=== PATIENT | male | born 1995 | race Caucasian/White ===

== ENCOUNTER 2018-03-26 12:45 | Inpatient (IN) | payer OTHER ==
[2018-03-26 13:12] VITALS: BMI 28.3
--- NOTE | 2018-03-26 13:24 | HP ---
COWS - Scale Resting Pulse: 1= [place] 81-100 Sweatin= Chills/Flushing Restless Observation: 1= Difficult to Sit Still Pupil Size: 0= Normal to Room Light Bone or Joint Aches: 1= Mild Discomfort Runny Nose/ Eye Tearin= Nasal Congestion GI Upset > 30mins: 1= Stomach Cramp Tremor Observation: 1= Tremor [place], Not Seen Yawning Observation: 1= 1-2x During Session Anxiety or Irritability: 1=Feels Anxious/Irritable Goose Flesh Skin: 0=Smooth Skin COWS Score: 9 CIWA Score - CIWA Score Nausea/Vomitin Muscle Tremors: 3 Anxiety: 4-Mod. Anxious/Guarded Agitation: 1-Slight > Activity Paroxysmal Sweats: 1-Minimal Palms Moist Orientation: 0-Oriented Tacttile Disturbances: 1-Very Mild Itch/Numbness Auditory Disturbances: 3-Moderate Harsh/Frighten Visual Disturbances: 0-None Headache: 2-Mild CIWA-Ar Total Score: 17 Admission ROS BHS - HPI Chief Complaint: I was doing good but I relapsed when I came back to [place], I need help to get it back together Allergies/Adverse Reactions: Allergies Allergy/AdvReac Type Severity Reaction Status Date / Time mercury Allergy Intermediate Swelling Uncoded 03/26/18 13:03 seafood Allergy Intermediate Swelling Uncoded 03/26/18 13:03 History of Present Illness: 22 yo gentleman here for detox from alcohol and opiates , sometimes uses benzodiazepines. Denies seizures, did have an overdose in the past and history of detox in the past elsewhere. Exam Limitations: Clinical Condition - Ebola screening Have you traveled outside of the country in the last 21 days: No (N) Have you had contact with anyone from an Ebola affected area: No Have you been sick,other than usual withdrawal symptoms: No Do you have a fever: No - Review of Systems Constitutional: Diaphoresis, Loss of Appetite, Malaise, Night Sweats, Changes in sleep, Weakness EENT: reports: Nose Congestion Respiratory: reports: No Symptoms reported Cardiac: reports: No Symptoms Reported GI: reports: Diarrhea, Nausea, Poor Appetite, Abdominal cramping : reports: Frequency Musculoskeletal: reports: Back Pain, Joint Pain, Muscle Pain Integumentary: reports: No Symptoms Reported Neuro: reports: Headache, Tremors Endocrine: reports: No Symptoms Reported Hematology: reports: No Symptoms Reported Psychiatric: reports: Judgement Intact, Mood/Affect Appropiate, Anxious Other Systems: Reviewed and Negative Patient History - Patient Medical History Hx Asthma: No Hx Chronic Obstructive Pulmonary Disease (COPD): No Hx Cancer: No Hx Cardiac Disorders: No Hx Hypertension: No Hx Hypercholesterolemia: No Hx Pacemaker: No HX Cerebrovascular Accident: No Hx Seizures: No Hx Diabetes: No Hx Gastrointestinal Disorders: No Hx Liver Disease: No Hx Genitourinary Disorders: No Hx Sexually Transmitted Disorders: No Hx Renal Disease (ESRD): No Hx Thyroid Disease: No Hx Human Immunodeficiency Virus (HIV): No Hx Hepatitis C: No Hx Depression: No Hx Suicide Attempt: No Hx Bipolar Disorder: No Hx Schizophrenia: No - Patient Surgical History Past Surgical History: No - PPD History Previous Implant?: Yes Documented Results: Negative w/o proof Implanted On Prior [facility] Admission?: No PPD to be Administered?: Yes - Reproductive History Patient is a Female of Child Bearing Age (11 -55 yrs old): No (male) - Smoking Cessation Smoking history: Current every day smoker Have you smoked in the past 12 months: Yes Aproximately how many cigarettes per day: 20 Initiated information on smoking cessation: Yes 'Breaking Loose' booklet given: 03/26/18 - Substance & Tx. History Hx Alcohol Use: Yes Hx Substance Use: Yes Substance Use Type: Alcohol, Opiates Hx Substance Use Treatment: Yes - Substances Abused Heroin Route: Smoking Frequency: Daily Amount used: 30 bags Age of first use: 17 Date of Last Use: 03/25/18 Alcohol Route: Oral Frequency: Daily Amount used: vodka- 2pts Age of first use: 12 Date of Last Use: 03/25/18 Alprazolam (Xanax) Route: Oral Frequency: 3-6 times per week Amount used: 4mg daily Age of first use: 13 Date of Last Use: 03/22/18 (when I can get it) suboxone Route: Oral Frequency: 1-2 times per week Amount used: 8 mg sl Age of first use: 21 Date of Last Use: 03/23/18 (non prescribed) marijuana Route: Smoking Frequency: Daily Amount used: 2 joints Age of first use: 11 Date of Last Use: 03/25/18 Family Disease History - Family Disease History Family Disease History: Other: Father ( living, healthy), Mother (living, healthy, etoh), Brother (one -healthy), Sister (one - healthy) Admission Physical Exam [facility] - Vital Signs Vital Signs: Vital Signs - 24 hr 03/26/18 13:03 Temperature 97.7 F Pulse Rate 75 Respiratory 18 Rate Blood Pressure 133/94 - Physical General Appearance: Yes: Nourished, Appropriately Dressed, Mild Distress, Tremorous, Anxious HEENTM: Yes: EOMI, Hearing grossly Normal, Normocephalic, Normal Voice, Pharynx Normal, Nasal Congestion Respiratory: Yes: Normal Breath Sounds, No Respiratory Distress Neck: Yes: No masses,lesions,Nodules Breast: Yes: Breast Exam Deferred Cardiology: Yes: Regular Rhythm, Regular Rate Abdominal: Yes: Non Tender, Flat Genitourinary: Yes: Frequency Back: Yes: Normal Inspection Musculoskeletal: Yes: full range of Motion, Gait Steady, Back pain, Muscle Pain Extremities: Yes: Normal Inspection, Normal Range of Motion, Non-Tender, Tremors Neurological: Yes: Fully Oriented, Alert, Motor Strength 5/5, Normal Mood/Affect , Normal Response Integumentary: Yes: Normal Color, Warm Lymphatic: Yes: Within Normal Limits - Diagnostic (1) Opioid dependence with withdrawal Current Visit: Yes Status: Acute (2) Alcohol dependence with uncomplicated withdrawal Current Visit: Yes Status: Acute (3) Nicotine dependence Current Visit: Yes Status: Chronic Qualifiers: Nicotine product type: cigarettes Substance use status: uncomplicated Qualified Code(s): F17.210 - Nicotine dependence, cigarettes, uncomplicated (4) Cannabis dependence Current Visit: Yes Status: Chronic (5) Moderate alprazolam dependence Current Visit: Yes Status: Chronic Cleared for Admission [facility] - Detox or Rehab [facility] Level of Care: Medically Managed Detox Regimen/Protocol: Methadone/Librium [facility] Breath Alcohol Content Breath Alcohol Content: 0 Urine Drug Screen - Results Drug Screen Negative: No Urine Drug Screen Results: THC-Marijuana, OPI-Opiates, OXY-Oxycodone, BUP- Suboxone
[2018-03-26] MEDS ORDERED: chlordiazePOXIDE HCL 25 MG CAPSULE PO PRN (13:32)
[2018-03-26] MEDS ORDERED: MAG HYDROX/AL HYDROX/SIMETH 30 ML UNIT-DOSE CUP PO PRN (13:32)
[2018-03-26] MEDS ORDERED: LOPERAMIDE HCL 2 MG CAPSULE PO PRN (13:32)
[2018-03-26] MEDS ORDERED: MAGNESIUM HYDROX 2400MG/30ML ORAL SUSPENSION 30 ML CUP PO PRN (13:32)
[2018-03-26] MEDS ORDERED: MAGNESIUM CITRATE 300 ML BOTTLE PO PRN (13:32)
[2018-03-26] MEDS ORDERED: MENTHOL/PHENOL 1 EACH UD MM PRN (13:32)
[2018-03-26] MEDS ORDERED: P-EPHED 60MG/TRIPROLIDI 2.5MG TABLET PO PRN (13:32)
[2018-03-26] MEDS ORDERED: hydrOXYzine PAMOATE 50 MG CAPSULE (FP) PO PRN (13:32)
[2018-03-26] MEDS ORDERED: guaiFENesin/D-METHORPHAN HB 10 ML UNIT-DOSE CUPS PO PRN (13:32)
[2018-03-26] MEDS ORDERED: NICOTINE POLACRILEX 4 MG GUM BUC PRN (13:32)
[2018-03-26] MEDS ORDERED: METHADONE HCL 10 MG TABLET (FOR DETOX USE ONLY) PO ONE ×2 (14:15→23:00)
[2018-03-26] MEDS ORDERED: chlordiazePOXIDE HCL 25 MG CAPSULE PO ONE (14:15)
[2018-03-26] MEDS: NICOTINE 21 MG/24 HOURS TOPICAL PATCH TD SCH (14:33)
--- NOTE | 2018-03-26 15:40 | EKG ---
Test Reason : Blood Pressure : / mmHG Vent. Rate : 068 BPM Atrial Rate : 068 BPM P-R Int : 150 ms QRS Dur : 092 ms QT Int : 388 ms P-R-T Axes : 060 083 034 degrees QTc Int : 412 ms NORMAL SINUS RHYTHM WITH SINUS ARRHYTHMIA NORMAL ECG NO PREVIOUS ECGS AVAILABLE Confirmed by MD Humphrey, Alvin ([id number]) on 03/26/2018 3:40:38 PM Referred By: Confirmed By:Alvin Yin MD
[2018-03-26] MEDS: ACETAMINOPHEN 325 MG TABLET (FP) PO PRN (17:41)
[2018-03-26] MEDS: chlordiazePOXIDE HCL 25 MG CAPSULE PO SCH ×2 (17:41→22:20)
[2018-03-26] MEDS: THIAMINE HCL 100 MG TABLET (FP) PO SCH (22:20)
[2018-03-26] MEDS: MELATONIN 5 MG TABLETS PO PRN (22:20)
[2018-03-26 23:23] LABS: URINE APPEARANCE CLEAR; URINE BILIRUBIN NEGATIVE (<2.0 mg/dL); URINE COLOR LTYELLOW; URINE GLUCOSE (UA) NEGATIVE (NEGATIVE); URINE KETONE NEGATIVE (NEGATIVE); URINE LEUK ESTERASE NEGATIVE (NEGATIVE); URINE NITRITE NEGATIVE (NEGATIVE); URINE PROTEIN NEGATIVE (NEGATIVE); URINE UROBILINOGEN NEGATIVE mg/dL (0.2-1.0)
[2018-03-27] MEDS: chlordiazePOXIDE HCL 25 MG CAPSULE PO SCH ×4 (05:37→22:12)
--- NOTE | 2018-03-27 09:46 | CONSULT ---
[facility] Psychiatric Consult - Data Date of interview: 03/27/18 Admission source: Do It In Person Identifying data: Mr George is a 22 years old single male, employed in [employer], domiciled seeking detox treatment for alcohol opioid, benzodiazepin and cannabis Substance Abuse History: Reports history of alcohol, heroin, suboxone, xanax and marijuana use. Refer to addiction counselor's summary for further information Medical History: Unremarkable. Smokes cigarettes 1 ppd Psychiatric History: Denies history of previous psychiatric treatment Physical/Sexual Abuse/Trauma History: Denies history of emotional, physical or sexual abuse as well as DV relationship. No service Additional Comment: Reports history of multiple previous misdemeanor arrests. No probation currently Mental Status Exam - Mental Status Exam Alert and Oriented to: Time, Place, Person Cognitive Function: Fair Patient Appearance: Well Groomed Mood: Anxious Affect: Appropriate Patient Behavior: Cooperative Speech Pattern: Clear Voice Loudness: Normal Thought Process: Intact, Goal Oriented Hallucinations: Denies Suicidal Ideation: Denies Homicidal Ideation: Denies Insight/Judgement: Fair Sleep: Poorly Appetite: Fair Muscle strength/Tone: Normal Gait/Station: Normal Psychiatric Findings - Problem List ([place] 1, 2,3) (1) Substance-induced anxiety disorder Current Visit: Yes Status: Acute (2) Substance-induced sleep disorder Current Visit: Yes Status: Acute (3) Alcohol dependence with uncomplicated withdrawal Current Visit: Yes Status: Acute (4) Opioid dependence Current Visit: Yes Status: Acute (5) Sedative hypnotic or anxiolytic dependence Current Visit: Yes Status: Acute (6) Cannabis dependence Current Visit: Yes Status: Acute (7) Nicotine dependence Current Visit: Yes Status: Chronic - Initial Treatment Plan Initial Treatment Plan: 1) Start Trazadone 100 mg po HS. 2) Continue inpatient detoxification
[2018-03-27] MEDS ORDERED: METHADONE HCL 10 MG TABLET (FOR DETOX USE ONLY) PO SCH (10:00)
[2018-03-27] MEDS: NICOTINE 21 MG/24 HOURS TOPICAL PATCH TD SCH (10:06)
[2018-03-27] MEDS: PRENATAL VITAMINS W/ FOLIC ACID TABLET (FP) PO SCH (10:07)
[2018-03-27 10:15] LABS: HEMATOCRIT 43.6 % (35.4-49); HEMOGLOBIN 14.5 GM/dL (11.7-16.9); MCH 27.9 pg (25.7-33.7); MCHC 33.3 g/dl (32.0-35.9); MEAN CELL VOLUME 83.8 fl (80-96); MEAN PLT VOLUME 9.2 fl (7.5-11.1); PLATELET COUNT 178 K/MM3 (134-434); RDW 13.1 % (11.9-15.9); WHITE BLOOD COUNT 4.7 K/mm3 (4.0-10.0)
[2018-03-27 10:32] LABS: ALBUMIN 4.1 g/dl (3.4-5.0); ALK PHOS 78 U/L (45-117); ANION GAP 8 MMOL/L (8-16); BILIRUBIN,TOTAL 0.3 mg/dL (0.2-1); BLOOD UREA NITROGEN 12 mg/dL (7-18); CALCIUM 9.5 mg/dL (8.5-10.1); CHLORIDE 106 mmol/L (98-107); CO2 29 mmol/L (21-32); CREATININE 0.7 mg/dL (0.55-1.3); GLUCOSE,RANDOM 93 mg/dL (74-106); POTASSIUM 4.5 mmol/L (3.5-5.1); SGOT/AST 11 U/L (15-37); SGPT/ALT 23 U/L (13-61); SODIUM 143 mmol/L (136-145); TOT PROT 6.7 g/dl (6.4-8.2)
--- NOTE | 2018-03-27 16:36 | PN ---
[facility] CIWA - CIWA Score Nausea/Vomitin-Mild Nausea/No Vomiting Muscle Tremors: 4-Moderate,w/Arms Extend Anxiety: 3 Agitation: 3 Paroxysmal Sweats: 1-Minimal Palms Moist Orientation: 0-Oriented Tacttile Disturbances: 0-None Auditory Disturbances: 0-None Visual Disturbances: 0-None Headache: 0-None Present CIWA-Ar Total Score: 12 BHS COWS - Scale Resting Pulse: 0= [place] 80 or Below Sweatin= Chills/Flushing Restless Observation: 1= Difficult to Sit Still Pupil Size: 0= Normal to Room Light Bone or Joint Aches: 2= Severe Diffuse Aches Runny Nose/ Eye Tearin= Nasal Congestion GI Upset > 30mins: 2= Nausea/Diarrhea Tremor Observation of Outstretched Hands: 1= Tremor [place], Not Seen Yawning Observation: 2= >3x During Session Anxiety or Irritability: 2=Irritable/Anxious Goose Flesh Skin: 0=Smooth Skin COWS Score: 12 [facility] Progress Note (SOAP) Subjective: tremor sweat body aches joints pain discuss consequence of leaving 03/30/18 Objective: 03/27/18 16:41 Vital Signs Temperature 97.3 F L 03/27/18 15:09 Pulse Rate 71 03/27/18 15:09 Respiratory Rate 18 03/27/18 15:09 Blood Pressure 127/57 L 03/27/18 15:09 O2 Sat by Pulse Oximetry (%) Laboratory Last Values WBC 4.7 K/mm3 (4.0-10.0) 03/27/18 07:30 RBC 5.20 M/mm3 (4.00-5.60) 03/27/18 07:30 Hgb 14.5 GM/dL (11.7-16.9) 03/27/18 07:30 Hct 43.6 % (35.4-49) 03/27/18 07:30 MCV 83.8 fl (80-96) 03/27/18 07:30 MCH 27.9 pg (25.7-33.7) 03/27/18 07:30 MCHC 33.3 g/dl (32.0-35.9) 03/27/18 07:30 RDW 13.1 % (11.9-15.9) 03/27/18 07:30 Plt Count 178 K/MM3 (134-434) 03/27/18 07:30 MPV 9.2 fl (7.5-11.1) 03/27/18 07:30 Sodium 143 mmol/L (136-145) 03/27/18 07:30 Potassium 4.5 mmol/L (3.5-5.1) 03/27/18 07:30 Chloride 106 mmol/L (98-107) 03/27/18 07:30 Carbon Dioxide 29 mmol/L (21-32) 03/27/18 07:30 Anion Gap 8 MMOL/L (8-16) 03/27/18 07:30 BUN 12 mg/dL (7-18) 03/27/18 07:30 Creatinine 0.7 mg/dL (0.55-1.3) 03/27/18 07:30 Creat Clearance w eGFR > 60 (>60) 03/27/18 07:30 Random Glucose 93 mg/dL (74-106) 03/27/18 07:30 Calcium 9.5 mg/dL (8.5-10.1) 03/27/18 07:30 Total Bilirubin 0.3 mg/dL (0.2-1) 03/27/18 07:30 AST 11 U/L (15-37) L 03/27/18 07:30 ALT 23 U/L (13-61) 03/27/18 07:30 Alkaline Phosphatase 78 U/L (45-117) 03/27/18 07:30 Total Protein 6.7 g/dl (6.4-8.2) 03/27/18 07:30 Albumin 4.1 g/dl (3.4-5.0) 03/27/18 07:30 Urine Color Ltyellow 03/26/18 21:00 Urine Appearance Clear 03/26/18 21:00 Urine pH 9.0 (5.0-8.0) H 03/26/18 21:00 Ur Specific [place] 1.015 (1.001-1.035) 03/26/18 21:00 Urine Protein Negative (NEGATIVE) 03/26/18 21:00 Urine Glucose (UA) Negative (NEGATIVE) 03/26/18 21:00 Urine Ketones Negative (NEGATIVE) 03/26/18 21:00 Urine Blood Negative (NEGATIVE) 03/26/18 21:00 Urine Nitrite Negative (NEGATIVE) 03/26/18 21:00 Urine Bilirubin Negative (<2.0 mg/dL) 03/26/18 21:00 Urine Urobilinogen Negative mg/dL (0.2-1.0) 03/26/18 21:00 Ur Leukocyte Esterase Negative (NEGATIVE) 03/26/18 21:00 RPR Titer Nonreactive (NONREACTIVE) 03/27/18 07:30 lab noted Assessment: 03/27/18 16:41 withdrawal sx Plan: continue detox
[2018-03-27] MEDS: THIAMINE HCL 100 MG TABLET (FP) PO SCH (22:12)
[2018-03-27] MEDS: traZODone HCL 50 MG TABLET (FP) PO SCH (22:12)
[2018-03-28] MEDS: chlordiazePOXIDE HCL 25 MG CAPSULE PO SCH ×2 (06:29→10:24)
[2018-03-28] MEDS ORDERED: METHADONE HCL 5 MG TABLET (FOR DETOX USE ONLY) PO SCH ×2 (10:00)
[2018-03-28] MEDS ORDERED: METHADONE HCL 10 MG TABLET (FOR DETOX USE ONLY) PO SCH (10:00)
[2018-03-28] MEDS: NICOTINE 21 MG/24 HOURS TOPICAL PATCH TD SCH (10:22)
[2018-03-28] MEDS: PRENATAL VITAMINS W/ FOLIC ACID TABLET (FP) PO SCH (10:22)
[2018-03-28] MEDS: IBUPROFEN 400 MG TABLET (FP) PO PRN (10:23)
[2018-03-28] MEDS: chlordiazePOXIDE 5 MG CAPSULE PO SCH ×2 (18:41→22:09)
[2018-03-28] MEDS: THIAMINE HCL 100 MG TABLET (FP) PO SCH (22:09)
[2018-03-28] MEDS: traZODone HCL 50 MG TABLET (FP) PO SCH (22:09)
[2018-03-28] MEDS: ACETAMINOPHEN 325 MG TABLET (FP) PO PRN (22:20)
[2018-03-29] MEDS: chlordiazePOXIDE 5 MG CAPSULE PO SCH ×2 (06:58→11:34)
[2018-03-29] MEDS ORDERED: METHADONE HCL 5 MG TABLET (FOR DETOX USE ONLY) PO ONE (10:00)
[2018-03-29] MEDS ORDERED: METHADONE HCL 5 MG TABLET (FOR DETOX USE ONLY) PO SCH ×2 (10:00)
[2018-03-29] MEDS: PRENATAL VITAMINS W/ FOLIC ACID TABLET (FP) PO SCH (10:35)
[2018-03-29] MEDS ORDERED: METHADONE HCL 10 MG TABLET (FOR DETOX USE ONLY) PO ONE (11:00)
[2018-03-29] MEDS: NICOTINE 21 MG/24 HOURS TOPICAL PATCH TD SCH (11:33)
--- NOTE | 2018-03-29 16:04 | PN ---
S Progress Note (SOAP) Subjective: joints pain body ache sweat tremor anxiety wants to go today does not want to have AMA agrees to leave 03/30/18 one day early reported feeling better no tremor no body ache Objective: 03/29/18 16:13 Vital Signs Temperature 96.8 F L 03/29/18 13:13 Pulse Rate 80 03/29/18 13:13 Respiratory Rate 18 03/29/18 13:13 Blood Pressure 129/72 03/29/18 13:13 O2 Sat by Pulse Oximetry (%) Laboratory Last Values WBC 4.7 K/mm3 (4.0-10.0) 03/27/18 07:30 RBC 5.20 M/mm3 (4.00-5.60) 03/27/18 07:30 Hgb 14.5 GM/dL (11.7-16.9) 03/27/18 07:30 Hct 43.6 % (35.4-49) 03/27/18 07:30 MCV 83.8 fl (80-96) 03/27/18 07:30 MCH 27.9 pg (25.7-33.7) 03/27/18 07:30 MCHC 33.3 g/dl (32.0-35.9) 03/27/18 07:30 RDW 13.1 % (11.9-15.9) 03/27/18 07:30 Plt Count 178 K/MM3 (134-434) 03/27/18 07:30 MPV 9.2 fl (7.5-11.1) 03/27/18 07:30 Sodium 143 mmol/L (136-145) 03/27/18 07:30 Potassium 4.5 mmol/L (3.5-5.1) 03/27/18 07:30 Chloride 106 mmol/L (98-107) 03/27/18 07:30 Carbon Dioxide 29 mmol/L (21-32) 03/27/18 07:30 Anion Gap 8 MMOL/L (8-16) 03/27/18 07:30 BUN 12 mg/dL (7-18) 03/27/18 07:30 Creatinine 0.7 mg/dL (0.55-1.3) 03/27/18 07:30 Creat Clearance w eGFR > 60 (>60) 03/27/18 07:30 Random Glucose 93 mg/dL (74-106) 03/27/18 07:30 Calcium 9.5 mg/dL (8.5-10.1) 03/27/18 07:30 Total Bilirubin 0.3 mg/dL (0.2-1) 03/27/18 07:30 AST 11 U/L (15-37) L 03/27/18 07:30 ALT 23 U/L (13-61) 03/27/18 07:30 Alkaline Phosphatase 78 U/L (45-117) 03/27/18 07:30 Total Protein 6.7 g/dl (6.4-8.2) 03/27/18 07:30 Albumin 4.1 g/dl (3.4-5.0) 03/27/18 07:30 Urine Color Ltyellow 03/26/18 21:00 Urine Appearance Clear 03/26/18 21:00 Urine pH 9.0 (5.0-8.0) H 03/26/18 21:00 Ur Specific [place] 1.015 (1.001-1.035) 03/26/18 21:00 Urine Protein Negative (NEGATIVE) 03/26/18 21:00 Urine Glucose (UA) Negative (NEGATIVE) 03/26/18 21:00 Urine Ketones Negative (NEGATIVE) 03/26/18 21:00 Urine Blood Negative (NEGATIVE) 03/26/18 21:00 Urine Nitrite Negative (NEGATIVE) 03/26/18 21:00 Urine Bilirubin Negative (<2.0 mg/dL) 03/26/18 21:00 Urine Urobilinogen Negative mg/dL (0.2-1.0) 03/26/18 21:00 Ur Leukocyte Esterase Negative (NEGATIVE) 03/26/18 21:00 RPR Titer Nonreactive (NONREACTIVE) 03/27/18 07:30 lab noted Assessment: 03/29/18 16:13 mild withdrawal sx 03/29/18 16:14 Plan: medically supervised detox
[2018-03-29] MEDS: chlordiazePOXIDE HCL 10 MG CAPSULE PO SCH ×2 (17:36→22:06)
[2018-03-29] MEDS: THIAMINE HCL 100 MG TABLET (FP) PO SCH (22:05)
[2018-03-29] MEDS: MELATONIN 5 MG TABLETS PO PRN (22:06)
[2018-03-29] MEDS: traZODone HCL 50 MG TABLET (FP) PO SCH (22:06)
[2018-03-29] MEDS: IBUPROFEN 400 MG TABLET (FP) PO PRN (22:09)
[2018-03-29 22:33] VITALS: BP 136/76; PULSE 87; TEMP 97.2
[2018-03-30] MEDS ORDERED: METHADONE HCL 5 MG TABLET (FOR DETOX USE ONLY) PO SCH (06:00)
[2018-03-30] MEDS: chlordiazePOXIDE HCL 10 MG CAPSULE PO SCH (06:18)
[2018-03-30] MEDS ORDERED: METHADONE HCL 10 MG TABLET (FOR DETOX USE ONLY) PO ONE (10:00)
[2018-03-30] MEDS ORDERED: METHADONE HCL 10 MG TABLET (FOR DETOX USE ONLY) PO SCH ×2 (10:00)
--- NOTE | 2018-03-30 10:56 | DS ---
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 the patient - Physical Exam Results Vital Signs: Vital Signs Temperature 97.2 F L 03/29/18 22:28 Pulse Rate 87 03/29/18 22:28 Respiratory Rate 18 03/30/18 03:30 Blood Pressure 136/76 03/29/18 22:28 O2 Sat by Pulse Oximetry (%) Pertinent Admission Physical Exam Findings: alcohol withdrawal sx Vital Signs Temperature 97.2 F L 03/29/18 22:28 Pulse Rate 87 03/29/18 22:28 Respiratory Rate 18 03/30/18 03:30 Blood Pressure 136/76 03/29/18 22:28 O2 Sat by Pulse Oximetry (%) Laboratory Last Values WBC 4.7 K/mm3 (4.0-10.0) 03/27/18 07:30 RBC 5.20 M/mm3 (4.00-5.60) 03/27/18 07:30 Hgb 14.5 GM/dL (11.7-16.9) 03/27/18 07:30 Hct 43.6 % (35.4-49) 03/27/18 07:30 MCV 83.8 fl (80-96) 03/27/18 07:30 MCH 27.9 pg (25.7-33.7) 03/27/18 07:30 MCHC 33.3 g/dl (32.0-35.9) 03/27/18 07:30 RDW 13.1 % (11.9-15.9) 03/27/18 07:30 Plt Count 178 K/MM3 (134-434) 03/27/18 07:30 MPV 9.2 fl (7.5-11.1) 03/27/18 07:30 Sodium 143 mmol/L (136-145) 03/27/18 07:30 Potassium 4.5 mmol/L (3.5-5.1) 03/27/18 07:30 Chloride 106 mmol/L (98-107) 03/27/18 07:30 Carbon Dioxide 29 mmol/L (21-32) 03/27/18 07:30 Anion Gap 8 MMOL/L (8-16) 03/27/18 07:30 BUN 12 mg/dL (7-18) 03/27/18 07:30 Creatinine 0.7 mg/dL (0.55-1.3) 03/27/18 07:30 Creat Clearance w eGFR > 60 (>60) 03/27/18 07:30 Random Glucose 93 mg/dL (74-106) 03/27/18 07:30 Calcium 9.5 mg/dL (8.5-10.1) 03/27/18 07:30 Total Bilirubin 0.3 mg/dL (0.2-1) 03/27/18 07:30 AST 11 U/L (15-37) L 03/27/18 07:30 ALT 23 U/L (13-61) 03/27/18 07:30 Alkaline Phosphatase 78 U/L (45-117) 03/27/18 07:30 Total Protein 6.7 g/dl (6.4-8.2) 03/27/18 07:30 Albumin 4.1 g/dl (3.4-5.0) 03/27/18 07:30 Urine Color Ltyellow 03/26/18 21:00 Urine Appearance Clear 03/26/18 21:00 Urine pH 9.0 (5.0-8.0) H 03/26/18 21:00 Ur Specific [place] 1.015 (1.001-1.035) 03/26/18 21:00 Urine Protein Negative (NEGATIVE) 03/26/18 21:00 Urine Glucose (UA) Negative (NEGATIVE) 03/26/18 21:00 Urine Ketones Negative (NEGATIVE) 03/26/18 21:00 Urine Blood Negative (NEGATIVE) 03/26/18 21:00 Urine Nitrite Negative (NEGATIVE) 03/26/18 21:00 Urine Bilirubin Negative (<2.0 mg/dL) 03/26/18 21:00 Urine Urobilinogen Negative mg/dL (0.2-1.0) 03/26/18 21:00 Ur Leukocyte Esterase Negative (NEGATIVE) 03/26/18 21:00 RPR Titer Nonreactive (NONREACTIVE) 03/27/18 07:30 lab note - Treatment Hospital Course: Detox Protocol Followed, Detoxed Safely, Responded well, Discharged Condition Good, Rehab Referral Accepted Patient has Accepted a Rehab Referral to: [facility] - Medication Discharge Medications: Ambulatory Orders traZODone HCL [Trazodone HCl] 100 mg PO HS #30 tablet 03/27/18 - Diagnosis (1) Alcohol dependence with uncomplicated withdrawal Status: Acute (2) Sedative hypnotic or anxiolytic dependence Status: Acute (3) Nicotine dependence Status: Acute Qualifiers: Nicotine product type: cigarettes Substance use status: in withdrawal Qualified Code(s): F17.213 - Nicotine dependence, cigarettes, with withdrawal - AMA Did Patient Leave Against Medical Advice: No
[2018-03-31] MEDS ORDERED: METHADONE HCL 5 MG TABLET (FOR DETOX USE ONLY) PO SCH ×2 (06:00)
== END 2018-03-30 06:55 | disposition home or self-care (01) | DRG 773 ==
LOC: YASAS 12:45 → Y6N 13:25
PROC: HZ2ZZZZ Detoxification Services for Substance Abuse Treatment (ICD-10-PCS; principal; 2018-03-26)
DX: F11.23 Opioid dependence with withdrawal (principal); F10.230 Alcohol dependence with withdrawal, uncomplicated; F13.20 Sedative, hypnotic or anxiolytic dependence, uncomplicated; F12.20 Cannabis dependence, uncomplicated; F17.210 Nicotine dependence, cigarettes, uncomplicated; F19.280 Other psychoactive substance dependence with psychoactive substance-induced anxiety disorder; F19.282 Other psychoactive substance dependence with psychoactive substance-induced sleep disorder
CPT/HCPCS: 36415; 80053; 81003; 85027; 86593; 93005; 93010